=== PATIENT | male | born 1970 | race American Indian/Alaskan Native ===

== ENCOUNTER 2017-06-16 07:48 | Outpatient (CLI) | payer OTHER ==
--- NOTE | 2017-06-16 08:11 | XRay Report ---
XRAY LEFT KNEE 3 VIEWS: 06/16/17 07:48:00 CLINICAL: Pain. FINDINGS: Mild osteopenia. The medial and lateral joint spaces are normal. Mild patellofemoral joint osteoarthritis with small osteophytes. No joint effusion. Normal soft tissues. IMPRESSION: Mild osteoarthritis of the patellofemoral joint.
== END 2017-06-16 07:49 | disposition home or self-care (01) ==
LOC: SPVIMAG 07:48
PROVIDERS: ATTEND Orthopaedic Surgery
DX: M17.12 Unilateral primary osteoarthritis, left knee (principal); M85.862 Other specified disorders of bone density and structure, left lower leg